=== PATIENT | male | born 1975 | race Caucasian/White ===

== ENCOUNTER → 2020-05-03 15:47 | Outpatient (CLI) | payer BC, SELFPAY ==
[2020-05-03 18:07] LABS: Absolute Neutrophil Count 5.4 X10^3/uL (2.0-7.7); Basophil# 0.06 X10^3/uL; Basophil% 0.7 % (0-1); Eosinophil# 0.11 X10^3/uL; Eosinophils% 1.2 % (0-5); Hemoglobin 14.2 g/dL (13.0-16.5); Lymphocyte % 30.4 % (19-41); Mean Corpuscular Hgb 30.6 pg (27.0-32.0); Mean Corpuscular Volume 92.7 fL (80-94); Monocyte# 0.63 X10^3/uL; Monocyte% 7.1 % (0-10); NRBC Flagged by Analyzer 0 % (0-5); Neutrophil # 5.35 X10^3/uL (2.7-7.7); Neutrophil % 60.3 % (47-70); Platelet Count 321 K/mm3 (150-450); RBC Distribution Width CV 12.3 % (11.6-14.6); RBC Distribution Width SD 42.3 fl (35.1-43.9); Red Blood Count 4.64 M/mm3 (4.6-6.2); White Blood Count 8.9 K/mm3 (4.4-11.0)
[2020-05-03 18:26] LABS: AST(SGOT) 21 U/L (15-37); Alanine Aminotransfer ALT/SGPT 25 U/L (16-61); Albumin, Serum 3.9 g/dL (3.2-5.0); Alkaline Phosphatase 80 U/L (45-117); Anion Gap 5 (5-15); BUN 10 mg/dL (7-18); BUN/Creat Ratio 14.6 RATIO (10-20); Bilirubin, Direct 0.13 mg/dL (0.00-0.30); Calcium,Total 8.9 mg/dL (8.5-10.1); Chloride 109 mmol/L (98-107); Creatinine, Serum 0.68 mg/dL (0.70-1.30); EST Glomerular Filtration Rate 132 mL/min (>60); Est Glom Filt Rate - Afr Amer 160 mL/min (>60); Globulin 3.7 g/dL (2.2-4.2); Glucose 89 mg/dL (74-106); Potassium 3.7 mmol/L (3.5-5.1); Protein, Total 7.6 g/dL (6.4-8.2); Sodium Level 141 mmol/L (136-145)
[2020-05-04 08:58] LABS: Hepatitis B Surface Antibody Non-Reactive; Hepatitis B Surface Antigen Non-Reactive (Nonreactive); Hepatitis C Antibody Non-Reactive (Nonreactive)
[2020-05-06 06:07] LABS: QNTFERON TB Mitogen Value > 10.00 IU/mL (.); QNTFERON TB Nil Value 0.02 IU/mL (.); QNTFERON TB1+ Ag Value 0.02 IU/mL (.); QNTFERON TB2+ Ag Value 0.02 IU/mL (.)
[2020-05-06 09:24] LABS: Hepatitis B Core Ab Total Negative (Negative); QNTIFERON TB Positive Criteria Negative (Negative)
== END ==
PROVIDERS: PCP Family Medicine; Referring Provider Dermatology; Visit Provider Dermatology
DX: L40.0 Psoriasis vulgaris (principal); L40.3 Pustulosis palmaris et plantaris; Z79.899 Other long term (current) drug therapy
CPT/HCPCS: 36415; 80048; 80076; 85025; 86480; 86704; 86706; 86803; 87340

== ENCOUNTER 2021-04-23 15:24 | Outpatient (CLI) | payer BC, SELFPAY ==
[2021-04-23 17:50] LABS: Absolute Lymphocyte Count 3.28 X10^3/uL (0.83-4.51); Absolute Neutrophil Count 6.3 X10^3/uL (2.0-7.7); Basophil# 0.05 X10^3/uL; Basophil% 0.5 % (0-1); Eosinophil# 0.16 X10^3/uL; Eosinophils% 1.5 % (0-5); Hematocrit 44.3 % (40-54); Hemoglobin 15.1 g/dL (13.0-16.5); Lymphocyte # 3.28 X10^3/ul (0.83-4.51); Mean Corp Hgb Conc 34.1 g/dL (32-36); Mean Corpuscular Hgb 31.1 pg (27.0-32.0); Mean Corpuscular Volume 91.3 fL (80-94); Mean Platelet Vol. 9.2 fl (6.2-12.0); Monocyte# 0.77 X10^3/uL; Monocyte% 7.3 % (0-10); NRBC Flagged by Analyzer 0 % (0-5); Neutrophil # 6.29 X10^3/uL (2.7-7.7); Neutrophil % 59.4 % (47-70); Platelet Count 318 K/mm3 (150-450); RBC Distribution Width CV 12.6 % (11.6-14.6); RBC Distribution Width SD 42.5 fl (35.1-43.9); Red Blood Count 4.85 M/mm3 (4.6-6.2); White Blood Count 10.6 K/mm3 (4.4-11.0)
[2021-04-23 18:05] LABS: Anion Gap 5 (5-15); BUN 10 mg/dL (7-18); BUN/Creat Ratio 14.5 RATIO (10-20); Calcium,Total 9.3 mg/dL (8.5-10.1); Chloride 107 mmol/L (98-107); Creatinine, Serum 0.69 mg/dL (0.70-1.30); EST Glomerular Filtration Rate 131 mL/min (>60); Est Glom Filt Rate - Afr Amer 158 mL/min (>60); Glucose 85 mg/dL (74-106); Potassium 3.7 mmol/L (3.5-5.1); Sodium Level 140 mmol/L (136-145)
[2021-04-25 21:07] LABS: QNTFERON TB Mitogen Value > 10.00 IU/mL (.); QNTFERON TB Nil Value 0 IU/mL (.); QNTFERON TB1+ Ag Value 0 IU/mL (.); QNTFERON TB2+ Ag Value 0 IU/mL (.)
[2021-04-25 21:23] LABS: QNTIFERON TB Positive Criteria Negative (Negative)
== END 2021-04-23 23:59 | disposition short-term general hospital (02) ==
LOC: MTLAB 15:26
PROVIDERS: PCP Family Medicine; Referring Provider Dermatology; Visit Provider Dermatology
DX: L40.0 Psoriasis vulgaris (principal); Z79.899 Other long term (current) drug therapy
CPT/HCPCS: 36415; 80048; 85025; 86480

== ENCOUNTER → 2022-05-02 | Outpatient (CLI) | payer BC, SELFPAY ==
[2022-05-05 07:07] LABS: QNTFERON TB Mitogen Value > 10.00 IU/mL (.); QNTFERON TB Nil Value 0.01 IU/mL (.); QNTFERON TB1+ Ag Value 0 IU/mL (.); QNTFERON TB2+ Ag Value 0.01 IU/mL (.)
[2022-05-05 09:21] LABS: QNTIFERON TB Positive Criteria Negative (Negative)
== END | disposition home or self-care (01) ==
LOC: MTLAB 15:24
PROVIDERS: PCP Family Medicine; Referring Provider Dermatology; Visit Provider Dermatology
DX: L40.0 Psoriasis vulgaris (principal); Z79.899 Other long term (current) drug therapy
CPT/HCPCS: 36415; 86480

== ENCOUNTER → 2023-05-05 | Outpatient (CLI) | payer BC, SELFPAY ==
--- OUTSIDE RECORDS SUMMARY | 2023-05-05 16:06 | XMS RPT_ITS | CCD ---
Author Name Unknown Address [id number] [place] [address] Organization [facility] Care Team Providers Care Disease Management Nurse Name Role Phone Mathew Menjivar Unavailable JULIETA HOLBROOK Unavailable Unavailable JULIETA HOLBROOK Unavailable Unavailable PHYSICI[facility], [facility] Unavailable Unav ailMathew Lopez Unavailable Unavailable Unavailable Mathew Menjivar Unavailable Aquilino Junior Unavailable Unavailsantosh Menjivar MD, Mathew Whitney Primary Care Provider DO AQUILINO JUNIOR Attending Unava ilable Mahesh, Dr. Mathew Whitney Primary Care Unav ailable MATHEW MENJIVAR Primary Care Unavaila ble SHERRILL IYER Referring Unavailable SHERRILL IYER Attending Unavailable SHERRILL IYER Attending Unavailable MATHEW MENJIVAR Referring Unavaila ble MATHEW MENJIVAR Primary Care Unavaila ble MATHEW MENJIVAR Admitting Unavaila ble IMMESOETE II, ELIZABETH TOUSSAINT Attending Cary vailable MATHEW MENJIVAR Primary Care Unavaila ble Allergies Allergy Classification Reported Allergen(s) Allergy Type Date of Onset Reaction(s) Facility (4 sources) Penicillins; Translations: [PENICILLINS] Propensity to adverse reactions to drug 7 [facility] Work Phone: (3 sources) Azithromycin; Translations: [Zithromax] Drug Allergy -[facility] Work Phone: (4 sources) Penicillins; Translations: [Penicillins] Allergy to drug (finding) Hives [facility] Work Phone: (1 source) Azithromycin Drug Allergy Hives [facility] (2 sources) Penicillins Propensity to adverse reactions to drug 7 [facility] Medications Current Medications Medication Drug Class(es) Dates Sig (Normalized) Sig (Original) acetaminophen 325 mg / oxyCODONE hydrochloride 5 mg oral tablet (1 source) Opioid Agonist Start: 11-11-2022 End: 11-13-2022 take 1 tablet by mouth every eight hours oxycodone-acetamino phen 5 mg-325 mg oral tablet ; 1 tab(s) orally every 8 hours Quantity: 9 Refills: 0 Ordered: 11-Nov-2022 Aquilino Junior Start: 11-Nov-2022 End: 13-Nov-2022 Generic Substitution Allowed Comments: Caution federal law prohibits the transfer of this drug to any person other than the person for whom it was prescribed.May cause drowsiness. Alcohol may intensify this effect. Use care when operating dangerous machinery.This prescription cannot be refilled.This product contains acetaminophen. Do not use with any other product containing acetaminophen to prevent possible liver damage.Using more of this medication than prescribed may cause serious breathing problems. Completed/Discontinued Medications Medication Drug Class(es) Dates Sig (Normalized) Sig (Original) calcium chloride 0.0014 meq/ml / potassium chloride 0.004 meq/ml / sodium chloride 0.103 meq/ml / sodium lactate 0.028 meq/ml injectable solution (1 source) Start: 04-02-2017 End: 04-02-2017 take 25 mL intravenous route every hour lactated Ringers infusion 25 mL/hr, Intravenous, Continuous, Starting 04/02/17 at 1400, Pre-Procedure New Bag 04/02/2017 14:09 EST 25 mL/hr 25 mL/hr 50 ml clindamycin 18 mg/ml injection (1 source) Lincosamide Antibacterial Start: 04-03-2017 End: 04-03-2017 take 900 mg intravenous route every eight hours clindamycin (CLEOCIN) IVPB 900 mg (premix) 900 mg, Intravenous, at 100 mL/hr, Every 8 hours, First dose on Marianne 04/03/17 at 0100, For 2 doses, Starting 8 hours after pre-procedure dose x 2 doses. New Bag 04/03/2017 00:21 EST 900 mg 100 mL/hr docusate sodium 50 mg / sennosides, mcfp 8.6 mg oral tablet (1 source) Start: 04-02-2017 End: 04-03-2017 senna-docusate (SENNA-S) 8.6-50 mg per tablet 1 tablet 1 tablet, Oral, 2 times daily, First dose on Fri04/02/17 at 2245, NOT for abdominal surgery patients. Hold for loose stools. Do Not Crush or Chew if administering orally due to bitter taste. May be crushed if given via tube. Given 04/02/2017 22:38 EST 1 tablet 50 ml fentaNYL 0.05 mg/ml injection (1 source) Opioid Agonist Start: 04-02-2017 End: 04-02-2017 fentaNYL (SUBLIMAZE) injection 25 mcg 25 mcg, Intravenous, Every 5 min PRN, Pain, Starting Fri04/02/17 at 1856, For 4 doses, PACU (only), [] Do not give more than 100 mcg while in PACU. Given 04/02/2017 19:05 EST 25 mcg 0.5 ml HYDROmorphone hydrochloride 1 mg/ml prefilled syringe (1 source) Opioid Agonist Start: 04-02-2017 End: 04-02-2017 HYDROmorphone (DILAUDID) injection 0.5 mg 0.5 mg, Intravenous, Every 5 min PRN, Pain, Starting Fri04/02/17 at 1856, For 6 doses, PACU (only), [] Give if fentanyl not effective or not ordered. [] Do not give more than 3 mg total. Given 04/02/2017 20:05 EST 0.5 mg 10 ml lidocaine hydrochloride 10 mg/ml injection (1 source) Antiarrhythmic, Amide Local Anesthetic Start: 04-02-2017 End: 04-02-2017 lidocaine 1% (XYLOCAINE) 10 mg/mL (1 %) injection 0.2 mL 0.2 mL, Intradermal, Once, Fri04/02/17 at 1400, For 1 dose, Pre-Procedure, Around site prior to IV insertion. Given 04/02/2017 14:09 EST 0.1 mL No Reported Medications (3 sources) No Reported Medications Quantity: 0 Refills: 0 Ordered: 17-Jul-2021 DO Active potassium chloride 0.02 meq/ml / sodium chloride 0.154 meq/ml injectable solution (1 source) Start: 04-02-2017 End: 04-03-2017 take 75 mL intravenous route every hour sodium chloride 0.9 % with KCl 20 mEq/L infusion 75 mL/hr, Intravenous, Continuous, Starting 04/02/17 at 2245 New Bag 04/02/2017 22:40 EST 75 mL/hr 75 mL/hr traMADol hydrochloride 50 mg oral tablet (1 source) Opioid Agonist End: 04-03-2017 take 1 tablet by mouth every four hours traMADol (ULTRAM) 50 mg tablet Take 50 mg by mouth every 4 (four) hours as needed for pain. 04/03/2017 Discontinued Problems Active Problems Problem Classification Problem Date Documented Da te Episodic/Chronic Allergic reactions (1 source) Allergy status to penicillin; Translations: [Allergy status to penicillin] Onset: 11-11-2022 Episodic Gastrointestinal hemorrhage (3 sources) Rectal hemorrhage; Translations: [Hemorrhage of rectum and anus] Episodic Spondylosis; intervertebral disc disorders; other back problems (5 sources) Herniation of nucleus pulposus; Translations: [Prolapsed lumbar intervertebral disc] Onset: 04-02-2017 04-02-2017 Chronic Spondylosis; intervertebral disc disorders; other back problems (10 sources) Backache; Translations: [Sciatica] Onset: 11-11-2022 11-11-2022 Episodic Past or Other Problems Problem Classification Problem Date Documented Da te Episodic/Chronic Unclassified (1 source) M51.27 Onset: 04-02-2017 Results Test Name Value Interpretation Reference Range Facil it Vital Signs Date Time Vital Sign Value Performing Clinician Faci lity 12-06-2022 09:49-0400 Diastolic blood pressure 74 mm[Hg] Elizabeth Ang II, MD Work Phone: [facility] 12-06-2022 09:49-0400 Heart rate 68 /min Elizabeth Ang II, MD Work Phone: [facility] 12-06-2022 09:49-0400 Respiratory rate 16 /min Elizabeth Ang II, MD Work Phone: [facility] 12-06-2022 09:49-0400 SaO2% (BldA) [Mass fraction] 97 % Elizabeth Ang II, MD Work Phone: [facility] 12-06-2022 09:49-0400 Systolic blood pressure 118 mm[Hg] Elizabeth Ang II, MD Work Phone: [facility] 11-11-2022 19:11-0400 Diastolic blood pressure 89 mm[Hg] Mathew Menjivar Other Phone: [facility] 11-11-2022 19:11-0400 Heart rate 80 /min Mathew Menjivar Other Phone: [facility] 11-11-2022 19:11-0400 Respiratory rate 16 /min Mathew Menjivar Other Phone: [facility] 11-11-2022 19:11-0400 SaO2% (BldA) [Mass fraction] 96 % Mathew Menjivar Other Phone: [facility] 11-11-2022 19:11-0400 Systolic blood pressure 141 mm[Hg] Mathew Garridod Other Phone: [facility] 11-11-2022 16:47-0400 Body height 185.4 cm Mathew Menjivar Other Phone: [facility] 11-11-2022 16:47-0400 Body temperature 98.06 [degF] Mathew Menjivar Other Phone: [facility] 11-11-2022 16:47-0400 Body weight 63.6 kg Mathew Menjivar Other Phone: [facility] 07-18-2021 08:41-0400 Body height 186.69 cm Mathew Menjivar Work Phone: [facility] Work Phone: 07-18-2021 08:41-0400 Body mass index (BMI) [Ratio] 18.41 kg/m2 Mathew Menjivar Work Phone: [facility] Work Phone: 07-18-2021 08:41-0400 Body surface area Derived from formula 1.87 m2 Mathew Menjivar Work Phone: [facility] Work Phone: 07-18-2021 08:41-0400 Body weight 64.16 kg Mathew Menjivar Work Phone: [facility] Work Phone: 07-18-2021 08:41-0400 Diastolic blood pressure 66 mm[Hg] Mathew Menjivar Work Phone: [facility] Work Phone: 07-18-2021 08:41-0400 Heart rate 95 /min Mathew Menjivar Work Phone: [facility] Work Phone: 07-18-2021 08:41-0400 SaO2% (BldA) [Mass fraction] 96 % Mathew Menjivar Work Phone: [facility] Work Phone: 07-18-2021 08:41-0400 Systolic blood pressure 114 mm[Hg] Mathew Menjivar Work Phone: [facility] Work Phone: 04-03-2017 07:34-0500 Body Temperature 98.2 [degF] Julieta Holbrook [facility] Work Phone: 04-03-2017 07:34-0500 BP Diastolic 62 mm[Hg] Julieta Nestor [facility] Work Phone: 04-03-2017 07:34-0500 BP Systolic 112 mm[Hg] Julieta Holbrook [facility] Work Phone: 04-03-2017 07:34-0500 Pulse (Heart Rate) 60 /min Julieta Holbrook [facility] Work Phone: 04-03-2017 07:34-0500 Pulse Oximetry 98 % Julieta Holbrook [facility] Work Phone: 04-03-2017 07:34-0500 Respiratory Rate 14 /min Julieta Holbrook [facility] Work Phone: 04-02-2017 13:54-0500 BMI (Body Mass Index) 18.79 kg/m2 Julieta Holbrook [facility] Work Phone: 04-02-2017 13:54-0500 Height 185.4 cm Julieta Holbrook [facility] Work Phone: 04-02-2017 13:54-0500 Weight 64.6 kg Julieta Holbrook [facility] Work Phone: Encounters Encounter Date Encounter Type Care Provider Facility Start: 12-06-2022 End: 12-06-2022 ambulatory ELIZABETH ANG [facility] Start: 12-06-2022 End: 12-06-2022 Office outpatient new 30 minutes Elizabeth Ang MD Work Phone: [facility] Procedures Date Procedure Procedure Detail Performing Clinician Start: 08-14-2021 End: 08-14-2021 Colonoscopy Mathew Menjivar Work Phone: Start: 08-14-2021 Colonoscopy Blair Menjivar Work Phone: Plan of Treatment Date Care Activity Detail Author Start: 08-15-2031 Screening for malignant neoplasm of colon [facility] Start: 12-20-2022 End: 12-20-2022 Patient encounter procedure 12/20/2022 1:00 PM EDT Office Visit [facility] [address] [place] [address] Kendrick Dawkins PA-C [address] [address] [facility] Start: 12-13-2022 Influenza vaccination Sequential Influenza Vaccine (#1) [facility] Start: 11-18-2022 End: 11-18-2022 Patient encounter procedure 11/18/2022 12:45 PM EDT Office Visit [facility] [address] [place] [address] Sherrill Iyer PA-C [address] [address] [facility] Start: 09-20-2021 VIRBRIANA, Provider: Nathanael Conte, Status: Pen, Time: 1:30 PM RENAEVCELI, Provider: Nathanael Conte, Status: Pen, Time: 1:30 PM [facility] Work Phone: Start: 10-31-2020 COVID-19 Vaccine (2 - Booster for Vickey series) COVID-19 Vaccine (2 - Booster for Vickey series) [facility] Start: 12-13-2016 Influenza vaccination SEQUENTIAL INFLUENZA VACCINE (#1) [facility] Work Phone: Start: 12-13-1991 Hepatitis C screening Hepatitis C Screening [facility] Start: 1988 HIV screening HIV Screening [facility] Start: 1985 Depression screening using PHQ-9 (Patient Health Questionnaire 9) score Depression Screening (PHQ-2/9) [facility] Start: 12-13-1979 Pneumococcal Vaccine: Ped or At-Risk (1 - PCV) Pneumococcal Vaccine: Ped or At-Risk (1 - PCV) [facility] Start: 1976 History and physical examination, annual for health maintenance Wellness Visit [facility] Start: 06-11-1974 COVID-19 Vaccine (#1) COVID-19 Vaccine (#1) [facility] Start: 1973 Prostate specific antigen measurement PSA Level [facility] Start: 1973 Screening for malignant neoplasm of colon [facility] Start: 1973 Tetanus vaccination [facility] History of colonoscopy History of colonos copy [facility] History of lumbar discectomy History of lumbar discectomy [facility] Immunizations Immunization Date Immunization Notes Care Provider Fa cility 09-05-2020 Vickey COVID-19 Vaccine 0.5 ML Intramuscular Suspension Mathew Menjivar Work Phone: [facility] Work Phone: Payers Date Payer Category Payer Unknown [id number] [id number] 2014 Unknown 1975 Unknown [id number] 1975 Unknown [id number] [id number] 1975 Unknown [id number] [id number] 1975 Unknown [id number] [id number] Social History Date Type Detail Facility Start: 04-03-2017 End: 11-19-2022 Tobacco smoking status MAIS Current every day smoker [facility] Work Phone: Start: 04-03-2017 End: 12-06-2022 Cigarettes smoked current (pack per day) - Reported [facility] Work Phone: Start: 1975 Sex Assigned At Not on file [facility] Work Phone: Tobacco smoking consumption unknown [facility] History of tobacco use Cigarette Smoker [facility] Start: 03-28-2017 End: 11-19-2022 Tobacco use and exposure Smokeless tobacco non-user [facility] Start: 05-23-2021 End: 12-06-2022 Alcohol intake Current drinker of alcohol (finding) [facility] Start: 04-02-2017 End: 12-06-2022 Tobacco use panel [facility] Medical Equipment Procedure Code Equipment Code Equipment Origin al Text Equipment Identifier Dates Allograft 16mm D isk Membrane Rdx2 - [id number] Start: 04-02-2017 Hemostat 2 X 6cm X 7mm Surgifoam Gelatin Sponge - [id number] Start: 04-02-2017 Allograft 16mm D isk Membrane Rdx2 - [id number] Start: 04-02-2017 Hemostat 2 X 6cm X 7mm Surgifoam Gelatin Sponge - [id number] Start: 04-02-2017 History of Present illness Narrative 12-06-2022 Elizabeth Ang II, MD - 12/06/2022 10:40 AM EDT Note Date & Type Note Facility 12-06-2022 History of Presen t illness Narrative Patient Information: Ryan Campos is a 46 y.o. male 1975 EUNICE Davis is a 46-year-old man who comes the office today with chief complaint of S1 radicular pain on the right-hand side. He states the pain has been going on for about a month. He has a history of left-sided hemilaminotomy and discectomy several years ago. He did very well from the procedure. Ryan rates his pain currently as approximately 3 out of 10 but was more concerning is that he does have weakness at approximately 4- out of 5 on dorsiflexion on the right-hand side. I have recommended surgery because of this weakness. Ryan is uncertain whether or not he wants to have surgery and would like to discuss this with his and will call the office on Friday. Detailed Review: He has a past medical history of Back pain and Seizures (HCC). He has a past surgical history that includes Laminectomy Discectomy Minimally Invasive Single Level (Left, 04/02/2017). His family history is not on file. He reports that he has been smoking cigarettes. He has been smoking an average of .5 packs per day. He has never used smokeless tobacco. He reports current alcohol use of about 2.0 standard drinks of alcohol per week. He reports that he does not use drugs. Current medicine and allergy list has been reviewed with the patient. ROS: 12 System Review was performed by the patient in the office setting today, and reviewed with the patient. This ROS will be digitally scanned into the chart following the appointment today. Physical and Neurological Examination: AAOx3, sensory exam intact, motor 5/5 throughout except right sided dorsiflexion which is approximately 3+ to 4- out of 5., no clonus, no alvarado's, reflexes 2+, gait normal Studies Reviewed I have reviewed the patient's imaging studies to date, in detail with patient in the office. Plans MRI of the lumbar spine shows recurrent disc herniation at L5-S1 with a free disc fragment on the right displacing his S1 nerve root and a disc bulge on the left contacting but not displacing his left S1 nerve root. Medical Decision-Making and Summary: He is a 46-year-old man who had a hemilaminotomy and discectomy on the left-hand side several years ago at L5-S1 and did very well from the procedure. He returns now with weakness of dorsiflexion and an S1 radiculopathy on the right due to a free disc fragment displacing the right S1 nerve root. Because of his weakness I have recommended surgery. I most likely would perform full laminectomies decompressions bilaterally as there is a disc bulge on the left now as well. I recommend surgery because of his motor examination. I believe Ryan understands this but he would like to talk to his first which I think is reasonable Ryan will contact the office on Friday with a decision. I have reviewed the clinical findings with the patient in the office today, and the radiographic correlate was demonstrated to the patient in the exam room as well. I discussed the natural history, as well as conservative and surgical treatment options. I utilized spinal models and diagrams to act as visual aids during counseling today. I have answered the patient's questions today, following my consultation. The patient was advised to call with any questions. documented in this encounter [facility] Evaluation note Note Date & Type Note Facility documented in this encounter [facility] Evaluation note Note Date & Type Note Facility documented in this encounter [facility] History of Present illness Narrative Note Date & Type Note Facility History of Present illness Narrative blood in stools, went to ER in 2019 (negative evaluation), dark blood, after wiping, some pain sitting, felt better after bathing in warm epson salt? seizures (had one in 2011), seems like vasovagal reactions+ fatigue, LH at times, no post ictal issues, no SOB, no N/Vloose stools [facility] Work Phone: Discharge Instructions * Julieta Holbrook MD - 04/02/2017 Lumbar Microdiscectomy: What to Expect at Home Your Recovery Microdiscectomy is surgery to remove part or all of a bulging (herniated) disc in the spine. A bulging disc may press on the spinal cord or spinal nerves and cause leg pain and numbness. Your doctor made a small cut (incision) in the skin over the spine. He or she inserted a special microscope (scope) to see the area and then used surgical tools through the incision to do the surgery. You can expect your back to feel stiff or sore after surgery. This should improve in the weeks after surgery. You may have relief from your symptoms right away, or you may get better over days or weeks. 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 It may take up to 8 weeks to get back to doing your usual activities. Your doctor may advise you to work with a physical therapist to strengthen the muscles around your spine and trunk. You will need to learn how to lift, twist, and bend so you do not put too much strain on your back. This care sheet gives you a general idea about how long it will take for you to recover. But each person recovers at a different pace. Follow the steps below to get better as quickly as possible. How can you care for yourself at home? Activity Rest when you feel tired. Getting enough sleep will help you recover. Try to walk each day. Start by walking a little more than you did the day before. Bit by bit, increase the amount you walk. Walking boosts blood flow and helps prevent pneumonia and constipation. Avoid lifting anything over 10 pounds. This may include heavy grocery bags and milk containers, a heavy briefcase or backpack, cat litter or dog food bags, a vacuum loom cleaner, or a child. Avoid bending or twisting. You may take stairs. You may sleep in any position that's comfortable. Avoid strenuous activities, such as bicycle riding, jogging, weight lifting, or aerobic exercise, until your doctor says it is okay. You may drive in one week. Avoid riding in a car for more than 30 minutes at a time for 2 to 4 weeks after surgery. If you must ride in a car for a longer distance, stop often to walk and stretch your legs. Try to change your position about every 30 minutes while you sit or stand. This will help decrease your back pain while you heal. Your time off from work depends on how quickly you feel better and on the type of work you do. If you work in an office, you likely can go back to work sooner than if you have a job where you are very active. Talk with your doctor about your work needs. Diet You can eat your normal diet. If your stomach is upset, try bland, low-fat foods like plain rice, broiled chicken, toast, and yogurt. Drink plenty of fluids (unless your doctor tells you not to). You may notice that your bowel movements are not regular right after your surgery. This is common. Try to avoid constipation and straining with bowel movements. You may want to take a fiber supplement every day. If you have not had a bowel movement after a couple of days, ask your doctor about taking a mild laxative. Medicines Be safe with medicines. Take pain medicines exactly as directed. If the doctor gave you a prescription medicine for pain, take it as prescribed. If you are not taking a prescription pain medicine, ask your doctor if you can take an [id number] medicine. If you think your pain medicine is making you sick to your stomach: Take your medicine after meals (unless your doctor has told you not to). Ask your doctor for a different pain medicine. If your doctor prescribed antibiotics, take them as directed. Do not stop taking them just because you feel better. You need to take the full course of antibiotics. Incision care You may shower today. Do not take a bath or go swimming for 4 weeks. Your sutures a dissolvable and there is a layer of super glue on top of the incision. You make remove your dressing tomorrow. Your Steristrips (paper strips) will fall off on their own. Other instructions To reduce stiffness and help sore muscles, use a warm water bottle, a heating pad set on low, or a warm cloth on your back. Do not put heat right over the incision. Do not go to sleep with a heating pad on your skin. Follow-up care is a chatterjee part of your treatment and safety. Be sure to make and go to all appointments, and call your doctor if you are having problems. It's also a good idea to know your test resultsand keep a list of the medicines you take. When should you call for help? Call 911 anytime you think you may need emergency care. For example, call if: You passed out (lost consciousness). You have sudden chest pain and shortness of breath, or you cough up blood. You lose bladder or bowel control. One or both legs suddenly feel weak or numb. Call your doctor now or seek immediate medical care if: You have pain that does not get better after you take pain medicine. You have a headache that does not get better after you take medicine for it. You have loose stitches, or your incision comes open. You have signs of infection, such as: Increased pain, swelling, warmth, or redness. Red streaks leading from the incision. Pus draining from the incision. Swollen lymph nodes in your neck, armpits or groin. A fever. You have blood or fluid draining from the incision. Watch closely for changes in your health, and be sure to contact your doctor if: You have new numbness or tingling in your legs. You have new pain or weakness in your legs. You do not have a bowel movement after taking a laxative. Where can you learn more? Log into your personal health record on [email or web address] and enter K636 in the Education box to learn more about Lumbar Microdiscectomy: What to Expect at Home. Current as of: September 15, 2013 Content Version: 10.3 6143-3753 [employer]. Care instructions adapted under license by your healthcare professional. If you have questions about a medical condition or this instruction, always ask your healthcare professional. [employer] disclaims any warranty or liability for your use of this information. in this encounter Summary Purpose Family History Unknown Family Member Name Dates Details Family history of malignant neoplasm: Mother(V16.9, Z80.9) Status:Active No pertinent family history: Father(V49.89, Z78.9) Status:Active Unknown Family Member Name Dates Details Family history of malignant neoplasm: Mother(V16.9, Z80.9) Status:Active No pertinent family history: Father(V49.89, Z78.9) Status:Active Unknown Family Member Name Dates Details No pertinent family history: Father(V49.89, Z78.9) Status:Active Family history of malignant neoplasm: Mother(V16.9, Z80.9) Status:Active Advance Directives Latest Code Status on File Code Status Date Activated Date Inactivated Comments Full Code 04/02/2017 9:52 PM Latest Code Status on File Code Status Date Activated Date Inactivated Comments Full Code 04/02/2017 9:52 PM Chief Complaint RECTAL BLEEDING ON/OFF [id number] Reason for Referral Specialty Diagnoses / Procedures Referred By Contact Referred To Contact Neurological Surgery / Neurosurgery Diagnoses Lumbar herniated disc Mathew Menjivar MD [address] [place] [address] Elizabeth Ang II, MD [address] [facility] [place] [address] [address] Referral ID Status Reason Start Date Expiration Date V isits Requested Visits Authorized [id number] Authorized 11/12/2022 11/12/2023 1 1 Additional Source Comments Julieta Holbrook MD - 04/02/2017 4:36 PM Julieta Suarez MD - 04/02/2017 4:36 PM EST H&P Notes (unrecognized sect ion and content) INTERVAL HISTORY AND PHYSICAL Patient Name: Jim Campos Admit Date: [id number] MR #: [id number] : 1975 The H&P has been reviewed and the patient has been examined. I concur with the findings of the H&P. There are no significant changes. It is appropriate to proceed with the planned procedure. Julieta Holbrook MD 04/02/2017 4:36 PM See uploaded H and P.in this encounter Best Loyd, TALHA - 04/03/2017 9:56 AM Tamara Bolanos MD - 04/02/2017 10:46 PM EST Consult Notes (unrecognized section and content) Formatting of this note may be different from the original. Physical Therapy PHYSICAL THERAPY EVALUATION/DISCHARGE NOTE Physical Therapy Assessment Body Structure and Function: Musculoskeletal impairment, Neurologic impairment Explain Impairments: S/P L5-S1 discectomy; post op pain, back precautions, decreased balance, activity tolerance Activities and Participation: Mobility limitation, Balance limitation and fall risk Explain Limitations: Decreased independence with transfers, ambulation, stair climbing Environmental Factors: Home situation, Family/caregiver support Explain Environmental Factors: Stairs to navigate; supportive family Personal Factors: Other (comment) Explain Personal Factors: Open to therapy/education Skilled Therapy Needs After Discharge Are Skilled Therapy Services Needed After Discharge: No DME Recommendation: None Outcomes Measures Prior Function - Basic Mobility Raw Score: 24 Points Prior Function - Basic Mobility % Impaired: 0% functionally impaired AM-PAC - Basic Mobility Raw Score: 21 Points AM-PAC - Basic Mobility % Impaired: 29.52% functionally impaired Therapy Precautions Orthotic Devices: No General Rehab Precautions: Back Balance Sitting Balance - Static: (Independent) Standing Balance - Static: (Supervision) Skilled Intervention: Pt able to do figure 4 position for lower body dressing. Provided spine guide and reviewed all back precautions and application to functional activity Bed Mobility Supine to Sit: Supervision Skilled Intervention: Cues to reinforce log roll technique Transfers Sit to Stand: Supervision Vinyl Cutter: 1 person, Gait belt Gait/Locomotion Gait Assistance: Supervision Assistive Device: None Distance: 320 Feet Pattern: R decreased step length, L decreased step length (Guarded posture; no LOB) Stair Management Technique: One rail R, Step to pattern, Alternating pattern (step to up; alternating down) Stair Management Assistance: Stand by assistance Number of Stairs: 12 Skilled Intervention: Education for activity recommendations post surgery Home Living Type of Home: House Home Layout: Two level, 1/2 bath on main level, Bed/bath upstairs Bathroom Shower/Tub: Walk-in shower Bathroom Equipment: Built-in shower seat Home Equipment: (None) Prior Level of Function Lives With: Spouse, Family ADL Assistance: Independent Homemaking Assistance: Independent 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 No pertinent surgical history. For complete objective data, detailed plan of care and patient education refer to: PT EVALUATION flow sheet, PT TREATMENT flow sheet, patient Plan of Care, Plan of Care progress note, and Patient Education. This note stands as the current Discharge Summary upon patient discharge from the hospital or completion of Physical Therapy Plan of Care. Associated Order(s): IP CONSULT TO HOSPITALIST Formatting of this note may be different from the original. [facility] Consult Note 04/02/17 Jim Campos 1975 [id number] Assessment/Plan: Jim Campos is a 41 y.o. male with a history of lumbar herniated disk with radiculopathy and seizure following a vasovagal syncopal event in 2014 who presented to [facility] 04/02/2017 for back surgery. [facility] was consulted for medical management. 1. Lumbar herniated disk: with radiculopathy. Failed conservative care s/p left L5-S1 METRx diskectomy on 04/02/[address] Holbrook (NS). IV narcs prn. Per NS. 2. Seizure: Following vasovagal syncopal event in 2014. Has had multiple subsequent episodes describes and staring spells followed by a period of confusion. No tonic-clonic movements, tongue biting or incontinence. Suspect seizures and recommended outpatient neurology evaluation. Seizure precautions. 3. Smoker: Cessation advised. 4. DVT Prophylaxis: SCD Thank you for allowing us to participate in the care of your patient. Do not hesitate to contact us with questions. Before 6 pm, please contact the provider listed in the treatment team. After 6 pm, please contact [phone] for any questions or concerns. Patient Arrived From: home Expected Disposition: home Based on current clinical information, the expected discharge date is: per primary service updated 04/02/17 Chief Complaint / Reason for Consult: Post-op medical management History of Present Illness: 41 year old M with history of lumbar herniated disk with radiculopathy and seizure following a vasovagal syncopal event in 2014 presented to [facility] for back surgery with Dr. Holbrook. Surgery was completed without immediate complications. Mild expected post-op back discomfort. Feels LLE paresthesias are already improving. Reports a hx of seizures. Had seen a nursing faculty remotely and thought to be due to vasovagal syncope. Has had about three episodes with last two weeks ago. Describes feeling an episode coming on, followed by a period of staring off where he is not aware of his surroundings followed by confusion. No headaches, vision changes, tongue biting, tonic-clonic movements or bowel/bladder incontinence. Has not seen neurology or had this further worked up. ROS: 10 systems were reviewed and negative, except as noted above. Past Medical, Surgical, Social, Family History: Past Medical History: Diagnosis Date Back pain Seizures (HCC) 03/19/2015---vaso vasal synco History reviewed. No pertinent surgical history. Social History Social History Marital status: Spouse name: N/A Number of children: N/A Years of education: N/A Occupational History Not on file. Social History Main Topics Smoking status: Current Every Day Smoker Packs/day: 0.50 Smokeless tobacco: Never Used Alcohol use 1.2 oz/week 2 Cans of beer per week Drug use: No Sexual activity: Not on file Other Topics Concern Not on file Social History Narrative No narrative on file History reviewed. No pertinent family history. Current Medications: Medication list reviewed with patient. Please see MAR for full details. Physical Exam: BP 133/67 (BP Location: Left arm, Patient Position: Lying) Pulse 68 Temp 98.5 ?F (36.9 ?C) (Oral) Resp 14 Ht 6' 1 Wt 64.6 kg (142 lb 6.7 oz) SpO2 98% BMI 18.79 kg/m General: NAD Eyes: EOMI ENT: neck supple Cardiovascular: Regular rate. Respiratory: Clear to auscultation Gastrointestinal: Soft, non tender Genitourinary: no suprapubic tenderness Musculoskeletal: No edema Skin: warm, dry Neuro: Alert, JERONIMO x 4 Psych: Mood appropriate. Labs, Imaging, and Studies: Reviewed in this encounter Dina Deshpande RN - 03/28/2017 11:56 AM EST Nursing Notes (unrecognized section and content) Patient Instructions for [facility]: Prior to surgery: Please contact your Surgeon's office for the scheduled time of your surgery. Report to the Surgery Family Waiting Area in the [place] area of [facility] 1 1/2-2 hours prior to your surgery. You may use the [employer] parking available at the Main Entrance/[place] Area of [facility] - a voucher for parking will be provided to you. One family member may accompany you back into the Pre-Op Area. Do not eat or drink anything after midnight or as directed, including gum, mints, and cough drops. No smoking after midnight. No alcohol 24 hours prior to your surgery. Please take any medications you have been instructed to take the morning of your surgery with small sips of water. Please be sure to wear comfortable, appropriate clothing. Please remove all jewelry and piercing's, including wedding rings. Leave all valuable items at home. Shower using anti-bacterial soap or as advised by your Surgeon's office Do not apply any makeup or lotions. Remove all nail [place] for surgeries involving extremities. Please remember to bring both your insurance card and a photo ID with you on the day of surgery. After your surgery: If you are having outpatient surgery - you must have a licensed sanitation truck driver to take you home. The expectation is that this sanitation truck driver will remain at the hospital for the duration of your procedure. You are advised to have a family member with you for at least 24 hours after being under Anesthesia. in this encounter Op Note - Julieta Holbrook MD - 04/02/2017 6:27 PM ESTAssessment & Plan Note - Julieta Holbrook MD - 04/02/2017 4:36 PM EST Miscellaneous Notes (unrecog nized section and content) SURGEON JULIETA HOLBROOK MD PREOPERATIVE DIAGNOSES 1. Lumbar herniated disk. 2. Lumbar radiculopathy. POSTOPERATIVE DIAGNOSES 1. Lumbar herniated disk. 2. Lumbar radiculopathy. PROCEDURES 1. Left METRx L5-S1 diskectomy. 2. Use of microscope. ANESTHESIA General per endotracheal tube. ESTIMATED BLOOD LOSS Less than 50 mL. COMPLICATION None. FINDINGS Lumbar disc herniation causing INDICATIONS The patient is a 41 y.o. [1] male who presents with left leg pain and weakness. An MRI Lumbar spine showed a disc herniation on the left at L5-S1. The patient had failed conservative care. I recommended to the patient a left L5-S1 METRx diskectomy. I explained the risks, benefits, and alternatives to surgery with the patient. The patient understood this and requested to proceed. OPERATION After adequate anesthesia was administered, patient was flipped over onto the Rui table with a Dmitri frame in a prone position. After adequate padding of all pressure points, the back was then prepped and draped in a sterile fashion. We performed a timeout to verify the laterality and level of the surgery. A surgical skin marker was used to randy a midline, another randy was made 1.5 cm to the left of midline. This was done under fluoroscopy. Patient was given antibiotics 30 minutes prior to incision. Also had postop orders for 24 hours worth of antibiotics. Patient had SCDs placed preop. The SCDs were ordered for postop as well. A 22-gauge spinal needle was used to localize the L5-S1 disk space. A 18 mm incision was centered around that. A 10 blade skin knife was used to make skin incision. We dissected down to the subcutaneous tissue. A K-wire was used to localized L5-S1 disk space and then dilated up to 16 mm tube. A 5 cm x 16 mm tube was docked onto the lamina. This was held in place using the flex arm. We verified our location using fluoroscopy. We then brought the microscope in. Under microscope we dissected off any tissue to expose the lamina. Lamina was drilled thin using the Midas Tro drill. This was resected using Kerrison rongeurs. We got underneath the ligamentum flavum using the ball hook. This was also resected using Kerrison rongeurs. We then dissected more laterally to find the lateral edge of the root. I then felt underneath this and found the disc herniation. We gently retracted the nerve root medially, bipolared the disc and incised it. We took out two small disc fragments and then one large one. There was an annular defect. We explored the disc space until the pituitary came back clean. When I was done, it looked like the nerve root was decompressed. We then irrigated with antibiotic irrigation and obtained hemostasis in the routine fashion. We placed some RDX over the exposed nerve root then placed Gelfoam on top of that and then took the tube out obtaining hemostasis on the way out. We then closed the incision in layers using 2-0 Vicryl for the fascia and subcutaneous tissue, 3-0 Vicryl for the subcuticular stitch in an inverted interrupted fashion. Exofin, Steri-Strips, Telfa and Tegaderm were placed on the wound. Patient was flipped over onto the transfer bed, and transferred to the PACU in stable condition. Patient tolerated the procedure well. There was no CSF encountered during the case. Associated Problem(s): Herniated nucleus pulposus, L5-S1 Left L5-S1 Metrx discectomyin this encounter (unrecognized sect ion and content) No Status Records FoundNo Status Records FoundNo Status Records FoundNo Status Records FoundNo Status Records FoundNo Status Records FoundNo Status Records Found INFORMATION SOURCE (unrecogn ized section and content) DATE CREATED AUTHOR AUTHOR'S ORGANIZ ATION 2018 [facility] DATE CREATED AUTHOR AUTHOR'S ORGANIZ ATION 07/20/2021 [employer] DATE CREATED AUTHOR AUTHOR'S ORGANIZ ATION 08/16/2021 [facility] DATE CREATED AUTHOR AUTHOR'S ORGANIZ ATION 11/14/2022 [facility] DATE CREATED AUTHOR AUTHOR'S ORGANIZ ATION 12/04/2022 [facility] DATE CREATED AUTHOR AUTHOR'S ORGANIZ ATION 12/07/2022 [facility] <item> Privacy Markings (unrecogniz ed section and content) Section Author: Karma Skaggs PROHIBITION ON REDISCLOSURE OF CONFIDENTIAL INFORMATION This notice accompanies a disclosure of information concerning a client made to you with the consent of such client. Care Teams (unrecognized sec tion and content) Disease Management Nurse Relationship Specialty Start Date End Date Mathew Menjivar MD [address] [place] [address] PCP - General Family Medicine 03/28/17 Reason for Visit (unrecogniz ed section and content) FOR RECORDS PERTAINING TO PATIENTS WHO ARE OR HAVE BEEN ENROLLED IN A CHEMICAL DEPENDENCY/SUBSTANCEABUSE PROGRAM, SOME INFORMATION MAY BE OMITTED. This clinical summary was aggregated from multiple sources. Caution should be exercised in using it in the provision of clinical care. This summary normalizes information from multiple sources, and as a consequence, information in this document may materially change the coding, format and clinical context of patient data. In addition, data may be omitted in some cases. CLINICAL DECISIONS SHOULD BE BASED ON THE PRIMARY CLINICAL RECORDS. [employer] provides no warranty or guarantee of the accuracy or completeness of information in this document.
[2023-05-08 11:09] LABS: Hepatitis B Core Ab Total Negative (Negative); QNTFERON TB Mitogen Value > 10.00 IU/mL (.); QNTFERON TB Nil Value 0 IU/mL (.); QNTFERON TB1+ Ag Value 0 IU/mL (.); QNTFERON TB2+ Ag Value 0 IU/mL (.); QNTIFERON TB Positive Criteria Negative (Negative)
== END | disposition home or self-care (01) ==
PROVIDERS: PCP Family Medicine; Referring Provider Dermatology; Visit Provider Dermatology
DX: L40.0 Psoriasis vulgaris (principal); Z79.899 Other long term (current) drug therapy
CPT/HCPCS: 36415; 86480; 86704

== ENCOUNTER → 2024-04-22 | Outpatient (CLI) | payer BC, SELFPAY ==
[2024-04-24 22:06] LABS: QNTFERON TB Mitogen Value > 10.00 IU/mL (.); QNTFERON TB Nil Value 0 IU/mL (.); QNTFERON TB1+ Ag Value 0 IU/mL (.); QNTFERON TB2+ Ag Value 0 IU/mL (.); QNTIFERON TB Positive Criteria Negative (Negative)
== END | disposition home or self-care (01) ==
LOC: MTLAB 16:25
PROVIDERS: PCP Family Medicine; Referring Provider Dermatology; Visit Provider Dermatology
DX: L40.0 Psoriasis vulgaris (principal); Z79.899 Other long term (current) drug therapy
CPT/HCPCS: 36415; 86480